=== PATIENT | female | born 1990 | race Caucasian/White ===

== ENCOUNTER 2018-01-23 03:01 | Emergency (ER) | payer MEDICAID, OTHER ==
[2018-01-23 03:06] VITALS: BP 131/81
--- NOTE | 2018-01-23 03:41 | ER Document Report ---
HPI - HPI Patient complains to provider of: sore throat, neck pain, ear pain Pain Level: 5 Context: Patient is a 27-year-old female that comes emergency department for chief complaint of sore throat, pain in her neck on the right side, and pain radiating up towards her right ear. She denies fever. Pain is been going on for several days. She denies cough, headache, vomiting, difficulty swallowing. Past medical history of anxiety, migraines, PTSD. LMP within the past month. - EENT EENT: REPORTS: Sore Throat, Ear Pain Past Medical History - General Information source: Patient - Social History Smoking Status: Current Every Day Smoker Chew tobacco use (# tins/day): No Frequency of alcohol use: None Drug Abuse: None Lives with: Alone Family History: Reviewed & Not Pertinent Patient has suicidal ideation: No Patient has homicidal ideation: No Neurological Medical History: Reports: Hx Migraine Renal/ Medical History: Denies: Hx Peritoneal Dialysis Psychiatric Medical History: Reports: Hx Depression - PTSD, anxiety - Immunizations Immunizations up to date: Yes Hx Diphtheria, Pertussis, Tetanus Vaccination: Yes Vertical Provider Document - CONSTITUTIONAL General Appearance: WD/WN, No Apparent Distress - INFECTION CONTROL TRAVEL OUTSIDE OF THE [place] IN LAST 30 DAYS: No - HEENT HEENT: Atraumatic, Normocephalic. negative: Normal ENT Exam - Patchy erythematous rash with some exhibits over the soft palate and tonsils with mild swelling of the tonsils, no abscess, normal uvula, clear airway. Normal tongue. Unremarkable ENT exam otherwise including ear exam - NECK Neck: Other - Lymphadenopathy worse on the right compared to the left, no soft tissue swelling or induration, no other abnormality noted - RESPIRATORY Respiratory: Breath Sounds Normal, No Respiratory Distress O2 Sat by Pulse Oximetry: 97 - CARDIOVASCULAR Cardiovascular: Regular Rate, Regular Rhythm Course - Re-evaluation Re-evalutation: Normal ear exam, patient with erythematous rash with exudative pharyngitis, adenopathy. 3 of 4 centor criteria met. Nurse has El swabbed her throat and this was negative, however after discussion with patient patient will be given penicillin along with dexamethasone. Discussed follow-up, return precautions. Patient states understanding and agreement. - Vital Signs Vital signs: Temp Pulse Resp BP Pulse Ox 97.8 F 93 18 131/81 H 97 01/23/18 03:05 01/23/18 03:05 01/23/18 03:05 01/23/18 03:05 01/23/18 03:05 Discharge - Discharge Clinical Impression: Lymphadenopathy Pharyngitis Qualifiers: Pharyngitis/tonsillitis etiology: unspecified etiology Qualified Code(s): J02.9 - Acute pharyngitis, unspecified Condition: Stable Disposition: HOME, SELF-CARE Additional Instructions: Your evaluation is very suggestive of strep pharyngitis, you also have swollen lymph nodes, you also have been treated for this. Take ibuprofen or Tylenol for pain, drink plenty of fluids, rest. Follow-up with primary care. Return for any concerning or worsening symptoms including difficulty swallowing , fever of 100.4 or greater, or any other concerning symptoms.
[2018-01-23] MEDS ORDERED: PENICILLIN G BENZATHINE 1.2 MILLION UNIT/2 ML DISP.SYRIN IM ONE (04:37)
[2018-01-23] MEDS ORDERED: DEXAMETHASONE SOD PHOS INJ 10 MG/1 ML VIAL IM ONE (04:37)
== END 2018-01-23 05:00 | disposition home or self-care (01) ==
LOC: ER 03:01
DX: J02.9 Acute pharyngitis, unspecified (principal); R59.1 Generalized enlarged lymph nodes; M54.2 Cervicalgia; H92.01 Otalgia, right ear; F17.200 Nicotine dependence, unspecified, uncomplicated
CPT/HCPCS: 99283; 96372; 87070; 87880; J0561; J1100

== ENCOUNTER → 2018-11-06 | Outpatient (CLI) | payer MEDICAID ==
--- NOTE | 2018-11-08 10:36 | EKG REPORT ---
SEVERITY:- NORMAL ECG - SINUS RHYTHM : Confirmed by: Carson Agudelo 08-Nov-2018 10:35:31
--- NOTE | 2018-11-09 14:59 | [facility] ---
[facility] NAME: DEE NUNN [facility] REFERENCE #: [id number] : 1990 DATE OF VISIT: 11/06/2018 PRIMARY CARE: [facility] at [facility] CHIEF COMPLAINT: Patient is nineteen weeks and it is desired that she have a consultation with me as I have followed her in the past for vasovagal syncope. The patient is seen at our [facility] for the above reason/chief complaint. 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 She was here to get an evaluation as I have not seen her in many years and now she is going to deliver a baby and is followed by [facility]. She has a history of getting very faint or near faint during her pregnancies. My notes indicate the last time I saw her was almost four years ago in December 2014. This was after she delivered two months prior to that a healthy son and she had weaned down on her Florinef, which we had her increased on the for near faints and faints. Her symptoms have virtually disappeared. She tells me that she had done well until she had another , and she is carrying a new baby girl now. She is seeing me at 19 weeks because she was previously living up in [place] and she went to Dr. Irene Mayes at the [facility] in [facility] in [place]. She had an echocardiogram there and she showed me the echo report from March 24, 2018. It stated she had a normal LV diameter of 4.1 cm but stated the fractional shortening was 25%, which of course is slightly low. It said the baseline impression was that she had normal ventricular performance. The adult cardiology group in [place] began her, for her symptoms, on metoprolol and increased the dose to a maximum of 50 mg long-acting metoprolol twice daily. She actually says she feels well on it. She does not feel that dizzy. She has had a couple times where she has to lie down or sit about three times in the month; two were in the shower. Another one where she nearly fainted was when the dog hit her finger and it broke her finger and she nearly fainted. She states her last full faint was about five weeks ago. She has not had Florinef since 2014. She says her recollection is it did not do much during the pregnancies. The story about her previous pregnancies where she had a little girl born seven years ago who was healthy and she was on Florinef during that and she was extremely vasovagal, and then she had problems of a similar nature when she carried her and delivered in October 2014 a healthy boy who is now four years old. She is on no other medications right now besides the metoprolol started by the cardiology group. She tells me that the high risk maternal physicians have no problem with her being on metoprolol. Also, they have not seen any evidence that there has been anything structurally wrong with this fetus female that she is carrying. She has sumatriptan but she is not using it for her headaches. SOCIAL HISTORY: She is living now in [place] with her brother and her kids. She smokes cigarettes; we discussed cessation of smoking. PAST MEDICAL HISTORY: See HPI. ALLERGIES: IN PREVIOUS NOTES STATED TO BE ALLERGIC TO SULFA. SYSTEM REVIEW: Negative for abnormal weight change, vision or hearing problems, wheezing or coughing, vomiting or diarrhea, urinary symptoms. She has a lot of headaches. PHYSICAL EXAMINATION: Weight 144 pounds, height 64 inches, blood pressure 102/60, heart rate 70, oximetry 100%. General exam is a very well-appearing young woman who has a normal body habitus. Her color is excellent and she has no pallor. Thyroid not enlarged or nodular. Lungs clear bilateral. Precordial activity normal with no abnormal murmur, click, or gallop. Normal second heart sounds. Abdominal exam is benign and gravid. The abdominal aorta feels normal and no bruit. Her ankles show no edema. Gait and coordination excellent. Twelve-lead electrocardiogram is normal, heart rate 76, QTC normal at 432, T-wave morphologies look very normal. Echocardiogram is performed because of the [place] study which I did see the echo report indicated only a fractional shortening of 25%. However, our echo today shows a normal fractional shortening and a calculated ejection fraction of 67% with normal LV performance and normal LV size. The right ventricle also appears normal. She has color flow mapping that shows trivial mitral regurgitation and trivial and normal tricuspid regurgitation. Tricuspid regurgitant velocity indicates no pulmonary hypertension. IMPRESSION: CARDIAC STATUS IS NORMAL AT NINETEEN WEEKS INTO THE . WE KNOW THAT SHE GETS VASOVAGAL SYMPTOMS AND NEAR FAINT WHEN SHE CARRIES HER PREGNANCIES. IN THE PAST I THOUGHT SHE IMPROVED, OR AT LEAST WAS MANAGEABLE DURING THE , WITH [place], BUT THIS TIME SHE IS DESCRIBING SYMPTOMS THAT SHE IS DOING ABOUT WELL SHE EVER HAS IN A USING THE METOPROLOL. IN ADDITION, SHE SAYS THAT SHE WAS WORSE WITHOUT THE METOPROLOL. I will, therefore, not change the prescription or medicine given by the previous adult cake former. I do not think she would need another echocardiogram prior to delivery, but I have counseled her strongly about lying down as soon as she starts to feel presyncopal as we do not want her falling because she has had a vasovagal syncope, something that is possible for her. She is to call for any and all presyncope or syncope episodes of any significance. She can also call if she has any chest pain or palpitations. KATELYNN ALFARO MD [id number] PHY#: [id number] ID: [id number] JOB#: [id number] ACCT: [id number] cc:KATELYNN ALFARO MD >
--- NOTE | 2018-11-10 09:09 | NONINVASIVE CARDIOLOGY REPORT ---
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 She is now at 19 weeks and having some symptoms vasovagal. We wish to show that she has no evidence of any cardiac dysfunction. REPORT Patient weight 144 pounds, height 64 inches. This echocardiogram study is normal. The left ventricular chamber size, systolic and diastolic, is normal. Calculated ejection fraction is normal at 67%. Atrial sizes are normal. The valves appear normal. No abnormal pericardial effusion. Color mapping shows trivial normal mitral regurgitation and trivial normal tricuspid regurgitation and pulmonic regurgitation. The Doppler flow velocities are normal through the cardiac valves and the tricuspid regurgitation velocity indicates no pulmonary hypertension. Cardiac dimensions in centimeters: LVED 4.6 LVES 2.9 LV wall 0.77 Septum 0.7 Right ventricle 2.8 Aortic root 2.1 Left atrium 3.1 Doppler velocities in meters/second: Aorta 1.5 Pulmonary 1.0 Tricuspid 0.76 Mitral 1.0 Tricuspid regurgitation 2.0 Descending aorta 1.2 FINAL IMPRESSION: Normal echocardiogram. INTERPRETING PHYSICIAN: KATELYNN ALFARO MD /: [id number] TT: 1923 ID: [id number] /: [id number] TD: 1648 JOB: [id number] cc:KATELYNN ALFARO MD >
== END ==
LOC: PC 09:19
PROVIDERS: ATTEND Pediatrics Pediatric Cardiology
DX: R55 Syncope and collapse (principal)
CPT/HCPCS: 93005; 93010; 93306